=== PATIENT | female | born 1995 | race Caucasian/White ===

== ENCOUNTER 2021-05-18 14:19 | Day surgery (SDC) | payer OTHER ==
[2021-05-18 15:22] VITALS: BMI 24.7
[2021-05-18] MEDS ORDERED: MIDAZOLAM HCL 2 MG/2 ML SINGLE DOSE VIAL ONE ×2 (15:47)
[2021-05-18] MEDS ORDERED: oxyCODONE HCL 5 MG TABLET PO PRN (15:47)
[2021-05-18] MEDS ORDERED: ONDANSETRON 4 MG/2 ML VIAL IVPUSH PRN (15:47)
[2021-05-18] MEDS ORDERED: PROPOFOL 20 ML ONE ×2 (15:47→16:23)
[2021-05-18] MEDS ORDERED: PROMETHAZINE HCL 25 MG/1 ML VIAL IVPUSH PRN (15:47)
[2021-05-18 15:53] LABS: HEMATOCRIT 36.7 % (32.4-45.2); HEMOGLOBIN 12.3 GM/dL (10.7-15.3); MCH 27.9 pg (25.7-33.7); MCHC 33.6 g/dl (32.0-36.0); MEAN CELL VOLUME 83.1 fl (80-96); MEAN PLT VOLUME 7.5 fl (7.5-11.1); PLATELET COUNT 211 10^3/uL (134-434); RBC 4.41 M/mm3 (3.60-5.2); RDW 13.9 % (11.6-15.6); WHITE BLOOD COUNT 6.5 K/mm3 (4.0-10.0)
[2021-05-18 16:03] LABS: INR 1.23 (0.83-1.09); PROTHROMBIN TIME (PATIENT) 13.8 SEC (9.7-13.0)
[2021-05-18 16:06] LABS: ACTIVATED PTT 28.3 SECONDS (25.2-36.5)
[2021-05-18] MEDS ORDERED: ceFAZolin SODIUM 1 GM VIAL IVPB ONE (16:15)
[2021-05-18 16:16] LABS: BLOOD UREA NITROGEN 10.3 mg/dL (7-18); CALCIUM 9.4 mg/dL (8.5-10.1)
[2021-05-18 16:17] LABS: ALBUMIN 4.1 g/dl (3.4-5.0)
[2021-05-18 16:20] LABS: CREATININE 0.5 mg/dL (0.55-1.3)
[2021-05-18 16:21] LABS: BILIRUBIN,TOTAL 0.4 mg/dL (0.2-1); TOT PROT 7.7 g/dl (6.4-8.2)
[2021-05-18] MEDS ORDERED: ONDANSETRON 4 MG/2 ML VIAL ONE (16:30)
[2021-05-18] MEDS ORDERED: OXYTOCIN 10 UNITS/ML VIAL ONE (16:30)
[2021-05-18] MEDS ORDERED: DEXAMETHASONE SOD PHOSPHATE 4 MG/1 ML VIAL ONE (16:30)
[2021-05-18] MEDS ORDERED: KETOROLAC TROMETHAMINE 30 MG/1 ML VIAL ONE (16:30)
[2021-05-18] MEDS ORDERED: ceFAZolin SODIUM 1 GM VIAL ONE (16:31)
[2021-05-18] MEDS ORDERED: ACETAMINOPHEN 325 MG TABLET (FP) PO PRN (17:02)
[2021-05-18] MEDS ORDERED: IBUPROFEN 400 MG TABLET (FP) PO PRN (17:02)
[2021-05-18 18:49] VITALS: BP 109/70; PULSE 83; TEMP 97
== END 2021-05-18 18:29 | disposition home or self-care (01) ==
LOC: JASU-SURG 14:19
PROVIDERS: ATTEND Specialist
PROC: 10D17ZZ Extraction of Products of Conception, Retained, Via Natural or Artificial Opening (ICD-10-PCS; principal; 2021-05-18 14:00)
DX: O02.1 Missed abortion (principal)
CPT/HCPCS: 36415; 80053; 85027; 85610; 85730; 86850; 86900; 86901; 88305-TC; 94760; C9803; U0003; U0005

== ENCOUNTER 2022-08-19 19:25 | Inpatient (IN) | payer OTHER ==
[2022-08-19] MEDS ORDERED: DINOPROSTONE 10 MG VAGINAL SUPPOSITORY VG ONE (20:30)
[2022-08-19] MEDS: ELECTROLYTE-148 SOLN 1,000 ML IV SCH (20:45)
[2022-08-19 21:24] VITALS: BMI 32.0
[2022-08-19] MEDS ORDERED: PROMETHAZINE HCL 25 MG/1 ML VIAL IVPB PRN (22:11)
[2022-08-19] MEDS ORDERED: BUTORPHANOL TARTRATE 2 MG/ML VIAL IVPB PRN (22:11)
[2022-08-20] MEDS ORDERED: OXYTOCIN 30 UNITS in 0.9% NS 30 UNIT/500 ML INFUS.BAG IVPB ONE (08:12)
[2022-08-20] MEDS: OXYTOCIN 30 UNITS in 0.9% NS 30 UNIT/500 ML INFUS.BAG IVPB SCH (08:20)
[2022-08-20] MEDS ORDERED: AMPICILLIN SODIUM 2 GM VIAL ONE (18:12)
[2022-08-20] MEDS ORDERED: AMPICILLIN SODIUM 2 GM VIAL IVPB ONE (18:15)
[2022-08-20] MEDS ORDERED: DINOPROSTONE 10 MG VAGINAL SUPPOSITORY VG ONE (19:42)
[2022-08-20] MEDS ORDERED: ZOLPIDEM TARTRATE 5 MG TABLET PO PRN (21:29)
[2022-08-20] MEDS ORDERED: AMPICILLIN SODIUM 1 GM VIAL ONE (22:11)
[2022-08-20] MEDS ORDERED: SODIUM CHLORIDE 100 ML IVPB ONE (22:11)
[2022-08-20] MEDS: AMPICILLIN - 1 GM in SODIUM CHLORIDE 100 ML IVPB SCH (22:20)
[2022-08-21] MEDS ORDERED: SODIUM CHLORIDE 100 ML IVPB ONE (02:06)
[2022-08-21] MEDS ORDERED: AMPICILLIN SODIUM 1 GM VIAL ONE (02:06)
[2022-08-21] MEDS: AMPICILLIN - 1 GM in SODIUM CHLORIDE 100 ML IVPB SCH ×2 (02:15→08:39)
[2022-08-21] MEDS ORDERED: ELECTROLYTE-148 SOLN 500 ML IV ONE (06:30)
[2022-08-21] MEDS ORDERED: CITRIC ACID/SODIUM CITRATE 30 ML UNIT-DOSE CUP PO ONE (06:30)
[2022-08-21] MEDS ORDERED: ONDANSETRON 4 MG/2 ML VIAL IVPUSH PRN (06:35)
[2022-08-21] MEDS ORDERED: morphine SULFATE/PF 1 MG/2 ML (2cc Syringe - QUVA) ONE (06:39)
[2022-08-21] MEDS ORDERED: FENTANYL CITRATE/PF 50 MCG/ML VIAL ONE (06:40)
[2022-08-21] MEDS ORDERED: PHENYLEPHRINE HCL 10 MG/1 ML SINGLE DOSE VIAL ONE (06:52)
[2022-08-21] MEDS ORDERED: ONDANSETRON 4 MG/2 ML VIAL ONE (06:53)
[2022-08-21] MEDS ORDERED: ceFAZolin SODIUM 1 GM VIAL ONE (06:53)
[2022-08-21] MEDS ORDERED: ELECTROLYTE-148 SOLN 1,000 ML IV SCH (07:00)
[2022-08-21] MEDS ORDERED: OXYTOCIN 10 UNITS/ML VIAL ONE (07:02)
[2022-08-21] MEDS ORDERED: SENNOSIDES/DOCUSATE COMBO (SENNA PLUS) TABLET (UD) PO PRN (07:34)
[2022-08-21] MEDS ORDERED: ONDANSETRON 4 MG/2 ML VIAL IVPB PRN (07:34)
[2022-08-21] MEDS ORDERED: ACETAMINOPHEN 325 MG TABLET (FP) PO PRN (07:34)
[2022-08-21] MEDS ORDERED: ACETAMINOPHEN 1000 MG/100 ML BAG IVPB PRN (07:34)
[2022-08-21] MEDS ORDERED: IBUPROFEN 800 MG/8 ML IJ IVPB PRN (07:34)
[2022-08-21] MEDS ORDERED: OXYTOCIN 20 UNITS in 0.9% NS 20 UNIT/1,000 ML INFUS.BAG IV ONE (07:51)
[2022-08-21] MEDS: OXYTOCIN 20 UNITS in 0.9% NS 20 UNIT/1,000 ML INFUS.BAG IV SCH ×3 (08:00→23:32)
[2022-08-21] MEDS ORDERED: CEFAZOLIN 2 GM in DEXTROSE 5%-WATER - 50 ML IVPB SCH (10:00)
[2022-08-21] MEDS ORDERED: CEFAZOLIN SODIUM 2 GM in DEXTROSE 5%-WATER 100 ML IVPB SCH (10:33)
[2022-08-21] MEDS: CEFAZOLIN SODIUM 2 GM in DEXTROSE 5%-WATER 100 ML IVPB SCH (18:16)
[2022-08-21] MEDS: IBUPROFEN 600 MG TABLET (FP) PO PRN (18:22)
[2022-08-21] MEDS: OXYTOCIN 30 UNITS in 0.9% NS 30 UNIT/500 ML INFUS.BAG IVPB SCH (20:19)
[2022-08-21] MEDS: ELECTROLYTE-148 SOLN 1,000 ML IV SCH (20:20)
[2022-08-22] MEDS: CEFAZOLIN SODIUM 2 GM in DEXTROSE 5%-WATER 100 ML IVPB SCH (02:15)
[2022-08-22] MEDS: SIMETHICONE 80 MG TAB.CHEW (FP) PO PRN ×2 (04:22→21:16)
[2022-08-22] MEDS: oxyCODONE HCL 5 MG TABLET PO PRN ×3 (04:22→17:02)
[2022-08-22] MEDS ORDERED: BISACODYL 10 MG SUPP.RECT RC PRN (07:34)
[2022-08-22] MEDS: IBUPROFEN 600 MG TABLET (FP) PO PRN ×2 (08:16→21:16)
[2022-08-22 09:09] LABS: BASO % 0.1 % (0-2.0); EOS % 0.3 % (0-4.5); HEMATOCRIT 27.5 % (32.4-45.2); HEMOGLOBIN 9.4 GM/dL (10.7-15.3); LYMPH % 10.8 % (8-40); MCH 28.2 pg (25.7-33.7); MCHC 34.2 g/dl (32.0-36.0); MEAN CELL VOLUME 82.5 fl (80-96); MEAN PLT VOLUME 8.1 fl (7.5-11.1); MONO % 4.6 % (3.8-10.2); NEUT % 84.2 % (42.8-82.8); PLATELET COUNT 138 10^3/uL (134-434); RBC 3.33 M/mm3 (3.60-5.2); RDW 14.8 % (11.6-15.6)
[2022-08-22] MEDS: diphenhydrAMINE HCL 25 MG CAPSULE (FP) PO PRN (21:16)
[2022-08-23] MEDS: IBUPROFEN 600 MG TABLET (FP) PO PRN (07:22)
[2022-08-23] MEDS ORDERED: ACETAMINOPHEN 325 MG TABLET (FP) PO PRN (09:49)
[2022-08-23] MEDS ORDERED: IBUPROFEN 600 MG TABLET (FP) PO PRN ×2 (09:51→10:10)
[2022-08-23] MEDS ORDERED: oxyCODONE HCL 5 MG TABLET PO PRN ×2 (09:52→10:10)
[2022-08-23] MEDS ORDERED: ACETAMINOPHEN 500 MG TABLET (FP) PO PRN (09:52)
[2022-08-23] MEDS: ACETAMINOPHEN 500 MG TABLET (FP) PO SCH ×2 (10:35→17:41)
[2022-08-23] MEDS: SIMETHICONE 80 MG TAB.CHEW (FP) PO PRN (10:45)
[2022-08-23] MEDS: FERROUS SO4 325 MG TABLET (FP) PO SCH ×2 (10:45→21:52)
[2022-08-23] MEDS: DOCUSATE SODIUM 100 MG CAPSULE (FP) PO SCH ×2 (10:45→21:52)
[2022-08-23] MEDS ORDERED: HYDROCORTISONE 1% TOPICAL CREAM 30 GM TUBE TP PRN (11:04)
[2022-08-23] MEDS: PRENATAL VITAMINS W/ FOLIC ACID TABLET (FP) PO SCH (11:17)
[2022-08-23] MEDS: diphenhydrAMINE HCL 25 MG CAPSULE (FP) PO PRN ×2 (13:15→21:52)
[2022-08-23 22:28] VITALS: RESP 16
[2022-08-24] MEDS: ACETAMINOPHEN 500 MG TABLET (FP) PO SCH ×2 (02:35→09:27)
[2022-08-24] MEDS ORDERED: methylPREDNISolone NA SUCC 125 MG/2 ML VIAL IVPUSH ONE (08:20)
[2022-08-24 08:45] LABS: BASO % 0.1 % (0-2.0); HEMOGLOBIN 9.4 GM/dL (10.7-15.3); LYMPH % 20.6 % (8-40); MCH 27.6 pg (25.7-33.7); MCHC 33.5 g/dl (32.0-36.0); MEAN CELL VOLUME 82.3 fl (80-96); MEAN PLT VOLUME 7.7 fl (7.5-11.1); MONO % 5.1 % (3.8-10.2); NEUT % 70.2 % (42.8-82.8); PLATELET COUNT 166 10^3/uL (134-434); RDW 14.8 % (11.6-15.6)
[2022-08-24] MEDS: FERROUS SO4 325 MG TABLET (FP) PO SCH (09:27)
[2022-08-24] MEDS: PRENATAL VITAMINS W/ FOLIC ACID TABLET (FP) PO SCH (09:27)
[2022-08-24] MEDS: DOCUSATE SODIUM 100 MG CAPSULE (FP) PO SCH (09:27)
[2022-08-24 10:23] VITALS: BP 125/77; PULSE 66; TEMP 97.8
== END 2022-08-24 13:15 | disposition home or self-care (01) | DRG 540 ==
LOC: JLDR 19:25 → J3W 08-21 09:05
PROVIDERS: ADMIT Specialist; ATTEND Specialist
PROC: 3E0P7VZ Introduction of Hormone into Female Reproductive, Via Natural or Artificial Opening (ICD-10-PCS; 2022-08-20)
PROC: 10D00Z1 Extraction of Products of Conception, Low, Open Approach (ICD-10-PCS; principal; 2022-08-21)
DX: O61.0 Failed medical induction of labor (principal); O36.63X0 Maternal care for excessive fetal growth, third trimester, not applicable or unspecified; O99.824 Streptococcus B carrier state complicating childbirth; O69.81X0 Labor and delivery complicated by cord around neck, without compression, not applicable or unspecified; Z3A.39 39 weeks gestation of pregnancy; Z37.0 Single live birth; O9A.23 Injury, poisoning and certain other consequences of external causes complicating the puerperium; L29.8 Other pruritus; T49.0X5A Adverse effect of local antifungal, anti-infective and anti-inflammatory drugs, initial encounter; Y92.230 Patient room in hospital as the place of occurrence of the external cause
CPT/HCPCS: 36415; 80053; 85025; 85027; 85610; 85730; 86780; 86850; 86900; 86901; 87389; 88307-TC; 94010; C9803-CS; U0003; U0005